=== PATIENT | male | born 1945 | race African-American/Black ===

== ENCOUNTER 2016-06-01 00:02 | Emergency (ER) | payer MEDICARE, BC ==
[~2016-06-01] VITALS: Ht 172.7 cm; Wt 110.0 kg
[~2016-06-01 00:02] MED LIST: ALLO100T PO; AMLO2.5T45 PO; CARB1TAB9 PO; CASCARA SAGRADA PO; CHOL20004 PO; CYAN10009 PO; DAPA5TAB PO; FLUTICASONE; GLIM2TAB2 PO; LEVO75CA2 PO; LOSA25TA PO; METF500T PO; NAPR220C15 PO; NITR0.4T3 SL; OMEP20TA15 PO; SIMV20TA6 PO; SYSOS EACHEYE
[2016-06-01 03:04] LABS: HEMATOCRIT 37.4 % (42.0-52.0); HEMOGLOBIN 11.7 g/dL (14.0-18.0); MEAN CORPUSCULAR HEMOGLOBIN 26.9 pg (28.0-32.0); MEAN CORPUSCULAR HGB CONC 31.3 g/dL (31.0-37.0); MEAN CORPUSCULAR VOLUME 85.9 fL (80.0-94.0); PLATELET 238 x1000/uL (130-400); RED BLOOD CELL COUNT 4.36 mill/uL (4.7-6.1); RED CELL DISTRIBUTION WIDTH 18.4 % (11.6-14.6); WHITE BLOOD COUNT 11.6 x1000/uL (4.5-11.0)
[2016-06-01 05:22] VITALS: BP 138/76
== END 2016-06-01 05:35 | disposition home or self-care (01) ==
LOC: ER 00:03
DX: R42 Dizziness and giddiness (principal); D64.9 Anemia, unspecified; I10 Essential (primary) hypertension; E11.9 Type 2 diabetes mellitus without complications; Z87.891 Personal history of nicotine dependence; Z85.46 Personal history of malignant neoplasm of prostate; Z98.890 Other specified postprocedural states
CPT/HCPCS: 36415; 84484; 85027; 93005; 99285

== ENCOUNTER 2016-07-22 18:53 | Emergency (ER) | payer MEDICARE, BC ==
[~2016-07-22] VITALS: Ht 172.7 cm; Wt 109.0 kg
[~2016-07-22 18:53] MED LIST changes: -LOSA25TA PO; +LOSA25TA3 PO
[2016-07-22] MEDS ORDERED: HYDR-523 PO (19:36)
[2016-07-22] MEDS ORDERED: MORPHINE SULFATE 10 MG/ML CPJ IV ONE (21:00)
[2016-07-22 23:16] VITALS: BP 123/72
== END 2016-07-22 23:17 | disposition home or self-care (01) ==
LOC: ER 20:03
DX: K62.89 Other specified diseases of anus and rectum (principal); E11.9 Type 2 diabetes mellitus without complications; E78.00 Pure hypercholesterolemia, unspecified; I10 Essential (primary) hypertension; Z79.84 Long term (current) use of oral hypoglycemic drugs; Z79.899 Other long term (current) drug therapy; Z83.3 Family history of diabetes mellitus
CPT/HCPCS: 96374; 99284; J2270; 96372

== ENCOUNTER 2016-09-15 09:14 | Emergency (ER) | payer MEDICARE, BC ==
[~2016-09-15] VITALS: Ht 172.7 cm; Wt 138.0 kg
[~2016-09-15 09:14] MED LIST changes: +HYDR-523 PO
[2016-09-15 10:19] LABS: BASOPHILS % 0.3 % (0.0-2.0); HEMATOCRIT. 36.3 % (42.0-52.0); HEMOGLOBIN. 11.7 g/dL (14.0-18.0); LYMPHOCYTES % 16.1 % (20.0-50.0); MEAN CORPUSCULAR HEMOGLOBIN 26.9 pg (28.0-32.0); MEAN CORPUSCULAR VOLUME 83.8 fL (80.0-94.0); MEAN PLATELET VOLUME 8.9 fl (7.4-10.4); MONOCYTES % 11.5 % (2.0-8.0); NEUTROPHILS % 70.1 % (40.0-76.0); PLATELET 223 x1000/uL (130-400); RED BLOOD CELL COUNT 4.33 mill/uL (4.7-6.1); RED CELL DISTRIBUTION WIDTH 18.7 % (11.6-14.6)
[2016-09-15 10:59] LABS: CARBON DIOXIDE 28 mEq/L (21-32); CHLORIDE 107 mEq/L (98-107); CREATINE KINASE 111 IU/L (39-308); CREATINE KINASE MB FRACTION 1.5 ng/mL (0.5-3.6); TROPONIN I < 0.02 ng/mL (0.00-0.04)
[2016-09-15] MEDS ORDERED: ALBUTEROL (0.083%) 2.5MG/3ML NEB HHN STA (11:02)
[2016-09-15] MEDS ORDERED: IPRATROPIUM BROMIDE (0.02%) 0.5MG/2.5ML NEB HHN STA (11:02)
[2016-09-15 11:24] LABS: PARTIAL THROMBOPLASTIN TIME 29.3 sec (24.0-34.0); PROTHROMBIN TIME 10.8 sec
[2016-09-15 11:30] VITALS: BP 130/88
[2016-09-15 11:42] LABS: CLARITY URINE CLEAR (CLEAR); COLOR URINE YELLOW (YELLOW); GLUCOSE URINE 3+ (NEGATIVE); KETONES URINE NEGATIVE (NEGATIVE); LEUKOCYTE ESTERASE URINE NEGATIVE (NEGATIVE); NITRITE URINE NEGATIVE (NEGATIVE); OCCULT BLOOD URINE NEGATIVE (NEGATIVE); PH URINE 5.5 (4.5-8.0); PROTEIN URINE NEGATIVE (NEGATIVE); SPECIFIC GRAVITY URINE 1.017 (1.005-1.030)
== END 2016-09-15 13:50 | disposition home or self-care (01) ==
LOC: ER 09:48
DX: J20.9 Acute bronchitis, unspecified (principal); R06.2 Wheezing; I11.9 Hypertensive heart disease without heart failure; E11.9 Type 2 diabetes mellitus without complications; E78.5 Hyperlipidemia, unspecified; Z79.899 Other long term (current) drug therapy; Z98.890 Other specified postprocedural states
CPT/HCPCS: 36415; 71010; 80053; 81001; 82550; 82553; 83605; 83690; 83880; 84484; 85025; 85610; 85730; 87040; 87086; 93005; 94644; 99285; J7611

== ENCOUNTER 2017-09-28 16:11 | Emergency (ER) | payer MEDICARE, BC ==
[~2017-09-28] VITALS: Ht 172.7 cm; Wt 109.0 kg
[~2017-09-28 16:11] MED LIST changes: -NITR0.4T3 SL; +NITR0.4T49 SL
[2017-09-28 18:14] LABS: BASOPHILS % 0.5 % (0.0-2.0); EOSINOPHILS % 0.3 % (0.0-5.0); HEMOGLOBIN. 11.3 g/dL (14.0-18.0); LYMPHOCYTES % 8.5 % (20.0-50.0); MEAN CORPUSCULAR VOLUME 82.8 fL (80.0-94.0); MONOCYTES % 5.6 % (2.0-8.0); NEUTROPHILS % 85.1 % (40.0-76.0); PLATELET 222 x1000/uL (130-400); RED BLOOD CELL COUNT 4.35 mill/uL (4.7-6.1); RED CELL DISTRIBUTION WIDTH 19.7 % (11.6-14.6)
[2017-09-28 18:18] LABS: CHLORIDE 107 mEq/L (98-107)
[2017-09-28 18:22] LABS: PROTHROMBIN TIME 10.7 sec (9.4-11.6)
[2017-09-28 19:13] LABS: CLARITY URINE CLEAR (CLEAR); COLOR URINE YELLOW (YELLOW); KETONES URINE TRACE (NEGATIVE); LEUKOCYTE ESTERASE URINE NEGATIVE (NEGATIVE); NITRITE URINE NEGATIVE (NEGATIVE); OCCULT BLOOD URINE NEGATIVE (NEGATIVE); PH URINE 6.5 (4.5-8.0); PROTEIN URINE NEGATIVE (NEGATIVE); SPECIFIC GRAVITY URINE 1.021 (1.005-1.030)
[2017-09-28 20:50] VITALS: BP 123/52
== END 2017-09-28 20:50 | disposition home or self-care (01) ==
LOC: ER 16:43
DX: R10.33 Periumbilical pain (principal); E11.9 Type 2 diabetes mellitus without complications; I10 Essential (primary) hypertension; E78.00 Pure hypercholesterolemia, unspecified; I25.10 Atherosclerotic heart disease of native coronary artery without angina pectoris; Z87.891 Personal history of nicotine dependence
CPT/HCPCS: 36415; 74176; 80053; 81003; 83690; 85025; 85610; 99285

== ENCOUNTER 2017-10-17 07:25 | Emergency (ER) | payer MEDICARE, BC ==
[~2017-10-17] VITALS: Ht 172.7 cm; Wt 109.0 kg
[2017-10-17 09:35] VITALS: BP 131/72
== END 2017-10-17 09:37 | disposition home or self-care (01) ==
LOC: ER 08:59
DX: I83.93 Asymptomatic varicose veins of bilateral lower extremities (principal); M25.561 Pain in right knee; E11.9 Type 2 diabetes mellitus without complications; I10 Essential (primary) hypertension; E78.00 Pure hypercholesterolemia, unspecified; M10.9 Gout, unspecified; Z98.61 Coronary angioplasty status; Z85.46 Personal history of malignant neoplasm of prostate; Z87.710 Personal history of (corrected) hypospadias; Z87.442 Personal history of urinary calculi; Z79.899 Other long term (current) drug therapy
CPT/HCPCS: 93971; 99284

== ENCOUNTER 2018-03-26 08:03 | Emergency (ER) | payer MEDICARE, BC ==
[~2018-03-26] VITALS: Ht 172.7 cm; Wt 103.0 kg
[2018-03-26] MEDS ORDERED: SODIUM CHLORIDE 0.9% 1,000 ML IV ONE (09:09)
[2018-03-26 09:53] LABS: BASOPHILS % 0.5 % (0.0-2.0); EOSINOPHILS % 0.4 % (0.0-5.0); HEMOGLOBIN. 11.6 g/dL (14.0-18.0); LYMPHOCYTES % 14.4 % (20.0-50.0); MEAN CORPUSCULAR HEMOGLOBIN 27.1 pg (28.0-32.0); MEAN PLATELET VOLUME 8.8 fl (7.4-10.4); MONOCYTES % 11.5 % (2.0-8.0); NEUTROPHILS % 73.2 % (40.0-76.0); PLATELET 222 x1000/uL (130-400); RED BLOOD CELL COUNT 4.28 mill/uL (4.7-6.1); RED CELL DISTRIBUTION WIDTH 19.2 % (11.6-14.6)
[2018-03-26 09:59] LABS: CHLORIDE 109 mEq/L (98-107); PROTHROMBIN TIME 10.4 sec (9.1-11.1)
[2018-03-26 10:43] LABS: CLARITY URINE CLEAR (CLEAR); COLOR URINE YELLOW (YELLOW); KETONES URINE NEGATIVE (NEGATIVE); LEUKOCYTE ESTERASE URINE NEGATIVE (NEGATIVE); NITRITE URINE NEGATIVE (NEGATIVE); OCCULT BLOOD URINE NEGATIVE (NEGATIVE); PROTEIN URINE NEGATIVE (NEGATIVE); SPECIFIC GRAVITY URINE 1.018 (1.005-1.030)
[2018-03-26 13:01] VITALS: BP 120/67
== END 2018-03-26 13:12 | disposition home or self-care (01) ==
LOC: ER 12:42
DX: I10 Essential (primary) hypertension (principal); E11.9 Type 2 diabetes mellitus without complications; E78.00 Pure hypercholesterolemia, unspecified; I25.2 Old myocardial infarction; Z85.46 Personal history of malignant neoplasm of prostate; Z95.820 Peripheral vascular angioplasty status with implants and grafts; Z96.653 Presence of artificial knee joint, bilateral
CPT/HCPCS: 36415; 71045; 80053; 81003; 83880; 84484; 85025; 85610; 93005; 99284; J7030

== ENCOUNTER 2019-02-28 12:45 | Emergency (ER) | payer MEDICARE, BC ==
[~2019-02-28] VITALS: Ht 175.3 cm; Wt 105.0 kg
[~2019-02-28 12:45] MED LIST changes: +CYAN-50 PO; -CYAN10009 PO; -LEVO75CA2 PO; +LEVO75CA4 PO
[2019-02-28] MEDS ORDERED: IBUPROFEN 600MG TABLET PO STA (14:01)
[2019-02-28 14:37] VITALS: BP 152/75
== END 2019-02-28 14:38 | disposition home or self-care (01) ==
LOC: ER 12:45
DX: M25.532 Pain in left wrist (principal); Z79.899 Other long term (current) drug therapy; I10 Essential (primary) hypertension; E11.9 Type 2 diabetes mellitus without complications; I51.9 Heart disease, unspecified; I21.9 Acute myocardial infarction, unspecified
CPT/HCPCS: 29125; 73110; 99283

== ENCOUNTER 2019-03-17 14:25 | Emergency (ER) | payer MEDICARE, BC ==
[~2019-03-17] VITALS: Ht 172.7 cm; Wt 107.0 kg
[2019-03-17 15:47] VITALS: BP 129/64
== END 2019-03-17 20:59 | disposition left against medical advice (07) ==
LOC: ER 14:25
DX: M54.9 Dorsalgia, unspecified (principal); Z53.21 Procedure and treatment not carried out due to patient leaving prior to being seen by health care provider

== ENCOUNTER 2019-04-28 23:32 | Emergency (ER) | payer MEDICARE, BC ==
[~2019-04-28] VITALS: Ht 172.7 cm; Wt 100.0 kg
[~2019-04-28 23:32] MED LIST changes: -GLIM2TAB2 PO; +GLIM2TAB30 PO; +SIMV-43 PO; -SIMV20TA6 PO
[2019-04-29 03:06] LABS: BASOPHILS % 0.3 % (0.0-2.0); EOSINOPHILS % 0.7 % (0.0-5.0); HEMATOCRIT. 38.6 % (42.0-52.0); HEMOGLOBIN. 12.4 g/dL (14.0-18.0); MEAN CORPUSCULAR HEMOGLOBIN 29.1 pg (28.0-32.0); MEAN CORPUSCULAR VOLUME 90.7 fL (80.0-94.0); MONOCYTES % 7.2 % (2.0-8.0); NEUTROPHILS % 73.8 % (40.0-76.0); PLATELET 192 x1000/uL (130-400); RED BLOOD CELL COUNT 4.25 mill/uL (4.7-6.1); RED CELL DISTRIBUTION WIDTH 17.4 % (11.6-14.6)
[2019-04-29 03:09] LABS: CHLORIDE 107 mEq/L (98-107)
[2019-04-29 03:33] VITALS: BP 105/51
== END 2019-04-29 03:48 | disposition home or self-care (01) ==
LOC: ER 23:32
DX: T46.1X1A Poisoning by calcium-channel blockers, accidental (unintentional), initial encounter (principal); Y92.9 Unspecified place or not applicable; I95.9 Hypotension, unspecified; E11.9 Type 2 diabetes mellitus without complications; I10 Essential (primary) hypertension; I25.2 Old myocardial infarction; Z85.9 Personal history of malignant neoplasm, unspecified; Z98.62 Peripheral vascular angioplasty status; Z87.442 Personal history of urinary calculi
CPT/HCPCS: 36415; 80053; 85025; 93005; 99284

== ENCOUNTER → 2020-02-26 | Outpatient (CLI) | payer MEDICARE, BC | END | disposition home or self-care (01) | LOC: LAB 08:22 | PROVIDERS: ATTEND Specialist | DX: Z01.812 Encounter for preprocedural laboratory examination (principal); R05 Cough; I25.10 Atherosclerotic heart disease of native coronary artery without angina pectoris; I10 Essential (primary) hypertension; E11.9 Type 2 diabetes mellitus without complications; E78.5 Hyperlipidemia, unspecified; E03.9 Hypothyroidism, unspecified; M10.9 Gout, unspecified; Z95.1 Presence of aortocoronary bypass graft | CPT/HCPCS: 87426 ==

== ENCOUNTER → 2020-02-27 | Day surgery (SDC) | payer MEDICARE, BC ==
[~2020-02-27] MED LIST changes: +ACETAMINOPHEN 325MG TABLET PO PRN; +ASPIRIN/SOD BICARB/CITRIC ACID 324MG TAB EFF ONE; +ATROPINE SULFATE 1MG/10ML SYR IV PRN; +FENTANYL CITRATE/PF 50MCG/ML 2ML VIAL ONE; +HEPARIN SODIUM 1,000 UNIT/1ML VIAL IV ONE; +IODIXANOL 320MG/ML 100 ML BOTTLE IV ONE; +LIDOCAINE HCL 1% 20ML VIAL (Pyxis) INJ ONE; +MIDAZOLAM HCL 2 MG/2 ML VIAL ONE; +MORPHINE SULFATE 2 MG/ML CPJ (NOT FOR IM USE) IV PRN; +NICARDIPINE 100MCG/ML 10ML VIAL (CATH LAB) IV ONE; +NITROGLYCERIN 50MCG/ML 10ML VIAL (CATH LAB) IV ONE; +ONDANSETRON HCL 4MG/2ML INJ IV PRN
== END | disposition home or self-care (01) ==
LOC: OR 08:22
PROVIDERS: ATTEND Specialist
DX: I25.10 Atherosclerotic heart disease of native coronary artery without angina pectoris (principal); I11.0 Hypertensive heart disease with heart failure; I50.32 Chronic diastolic (congestive) heart failure; E78.00 Pure hypercholesterolemia, unspecified; E11.9 Type 2 diabetes mellitus without complications; E03.9 Hypothyroidism, unspecified; M10.9 Gout, unspecified; I25.2 Old myocardial infarction; G20 Parkinson's disease; Z79.82 Long term (current) use of aspirin; Z79.84 Long term (current) use of oral hypoglycemic drugs; Z79.899 Other long term (current) drug therapy; Z98.890 Other specified postprocedural states; Z82.49 Family history of ischemic heart disease and other diseases of the circulatory system; Z83.3 Family history of diabetes mellitus
CPT/HCPCS: 85347; 93458; 93571; 93572; C1769; C1887; C1893; J1644; J2250; J3010; J3490; Q9967

== ENCOUNTER 2021-05-24 07:29 | Emergency (ER) | payer MEDICARE, BC ==
[~2021-05-24] VITALS: Ht 177.8 cm; Wt 97.0 kg
[~2021-05-24 07:29] MED LIST changes: -ACETAMINOPHEN 325MG TABLET PO PRN; -ASPIRIN/SOD BICARB/CITRIC ACID 324MG TAB EFF ONE; -ATROPINE SULFATE 1MG/10ML SYR IV PRN; -FENTANYL CITRATE/PF 50MCG/ML 2ML VIAL ONE; -HEPARIN SODIUM 1,000 UNIT/1ML VIAL IV ONE; -IODIXANOL 320MG/ML 100 ML BOTTLE IV ONE; -LIDOCAINE HCL 1% 20ML VIAL (Pyxis) INJ ONE; -MIDAZOLAM HCL 2 MG/2 ML VIAL ONE; -MORPHINE SULFATE 2 MG/ML CPJ (NOT FOR IM USE) IV PRN; -NICARDIPINE 100MCG/ML 10ML VIAL (CATH LAB) IV ONE; -NITROGLYCERIN 50MCG/ML 10ML VIAL (CATH LAB) IV ONE; -ONDANSETRON HCL 4MG/2ML INJ IV PRN
[2021-05-24 09:14] LABS: BASOPHILS % 0.7 % (0.0-2.0); EOSINOPHILS % 1.9 % (0.0-5.0); HEMATOCRIT. 37.3 % (42.0-52.0); HEMOGLOBIN. 12.1 g/dL (14.0-18.0); LYMPHOCYTES % 17.4 % (20.0-50.0); MEAN CORPUSCULAR HEMOGLOBIN 28.5 pg (28.0-32.0); MEAN CORPUSCULAR VOLUME 87.8 fL (80.0-94.0); MEAN PLATELET VOLUME 9.5 fl (7.4-10.4); MONOCYTES % 8.6 % (2.0-8.0); NEUTROPHILS % 71.4 % (40.0-76.0); PLATELET 185 x1000/uL (130-400); RED BLOOD CELL COUNT 4.25 mill/uL (4.7-6.1); RED CELL DISTRIBUTION WIDTH 17.4 % (11.6-14.6)
[2021-05-24 09:22] LABS: CHLORIDE 107 mEq/L (98-107)
[2021-05-24 12:53] VITALS: BP 145/66
== END 2021-05-24 13:02 | disposition home or self-care (01) ==
LOC: ER 07:29
DX: M25.532 Pain in left wrist (principal); I49.8 Other specified cardiac arrhythmias; J44.9 Chronic obstructive pulmonary disease, unspecified; E11.9 Type 2 diabetes mellitus without complications; I10 Essential (primary) hypertension; I25.2 Old myocardial infarction; E03.9 Hypothyroidism, unspecified; G20 Parkinson's disease; I25.10 Atherosclerotic heart disease of native coronary artery without angina pectoris; E78.5 Hyperlipidemia, unspecified; Z85.9 Personal history of malignant neoplasm, unspecified; Z87.442 Personal history of urinary calculi
CPT/HCPCS: 36415; 71045; 73110; 80053; 84484; 85025; 93005; 99285

== ENCOUNTER 2024-09-23 02:48 | Emergency (ER) | payer MEDICARE, BC ==
[~2024-09-23] VITALS: Ht 172.7 cm; Wt 82.0 kg
[~2024-09-23 02:48] MED LIST changes: +DOCU100T MT; +FEO PR; +LOSA-412 PO; -LOSA25TA3 PO; +POLY17PO3 MT
[2024-09-23 02:59] VITALS: O2SAT 100
[2024-09-23] MEDS ORDERED: POLY17PO3 MT (04:59)
[2024-09-23] MEDS ORDERED: HYDR30CR80 TP (04:59)
[2024-09-23 05:13] VITALS: BP 114/68; PULSE 91; RESP 18; TEMP 36.8; O2SAT 98
== END 2024-09-23 05:20 | disposition home or self-care (01) ==
LOC: ER 02:48
DX: K64.9 Unspecified hemorrhoids (principal); I25.2 Old myocardial infarction; I10 Essential (primary) hypertension; Z79.899 Other long term (current) drug therapy; Z98.890 Other specified postprocedural states
CPT/HCPCS: 99283

== ENCOUNTER 2024-12-09 22:54 | Emergency (ER) | payer MEDICARE, BC ==
[~2024-12-09] VITALS: Ht 190.5 cm; Wt 95.0 kg
[~2024-12-09 22:54] MED LIST changes: +HYDR30CR80 TP
[2024-12-09 23:19] VITALS: O2SAT 98
[2024-12-10 00:17] LABS: CLARITY URINE CLEAR (CLEAR); COLOR URINE YELLOW (YELLOW); GLUCOSE URINE 3+ (NEGATIVE); KETONES URINE NEGATIVE (NEGATIVE); LEUKOCYTE ESTERASE URINE NEGATIVE (NEGATIVE); NITRITE URINE NEGATIVE (NEGATIVE); OCCULT BLOOD URINE NEGATIVE (NEGATIVE); PH URINE 8.0 (4.5-8.0); PROTEIN URINE NEGATIVE (NEGATIVE); SPECIFIC GRAVITY URINE 1.019 (1.005-1.030); UROBILINOGEN URINE 1.0 E.U./dL (0.2-1.0)
[2024-12-10 00:49] LABS: BACTERIA URINE NONE SEEN; RBC URINE 0-2 /hpf (0-2); SQUAMOUS EPITHELIAL CELL URINE NONE SEEN /lpf (RARE/1+); WBC URINE 0-2 /hpf (0-2)
[2024-12-10 00:54] VITALS: TEMP 36.8; O2SAT 98
[2024-12-10 01:22] VITALS: BP 130/65; PULSE 85; RESP 14; TEMP 98.8
[2024-12-10 01:23] LABS: BASOPHILS % 0.1 % (0.0-2.0); EOSINOPHILS % 0.5 % (0.0-5.0); HEMATOCRIT. 36.6 % (42.0-52.0); HEMOGLOBIN. 11.7 g/dL (14.0-18.0); LYMPHOCYTES % 7.8 % (20.0-50.0); MEAN PLATELET VOLUME 9.3 fl (7.4-10.4); MONOCYTES % 5.6 % (2.0-8.0); NEUTROPHILS % 86.0 % (40.0-76.0); PLATELET 173 x1000/uL (130-400); RED BLOOD CELL COUNT 4.06 mill/uL (4.7-6.1); RED CELL DISTRIBUTION WIDTH 16.0 % (11.6-14.6)
[2024-12-10 01:34] LABS: CREATININE 1.3 mg/dL (0.6-1.3); UREA NITROGEN BLOOD 16 mg/dL (9-23)
[2024-12-10 01:36] LABS: ASPARTATE AMINOTRANSFERASE 25 IU/L (<34); BILIRUBIN DIRECT < 0.1 mg/dL (<=3.0); BILIRUBIN TOTAL 0.3 mg/dL (0.1-1.0); PROTEIN TOTAL 6.7 g/dL (6.0-8.3)
== END 2024-12-10 05:01 | disposition left against medical advice (07) ==
LOC: ER 23:12 → EDBEDREQTM 12-10 04:02 → EDBEDREQ 12-10 04:02 → CANBEDREQ 12-10 04:59 → ER 12-10 05:01
DX: R10.84 Generalized abdominal pain (principal); E11.9 Type 2 diabetes mellitus without complications; I10 Essential (primary) hypertension; Z79.84 Long term (current) use of oral hypoglycemic drugs; Z79.899 Other long term (current) drug therapy; Z79.890 Hormone replacement therapy
CPT/HCPCS: 36415; 74176; 80048; 80076; 81003; 85025; 99284